=== PATIENT | female | born 1990 | race African-American/Black ===

== ENCOUNTER 2017-02-17 21:11 | Emergency (ER) | payer SELFPAY ==
[~2017-02-17] VITALS: Ht 162.6 cm; Wt 104.7 kg
[~2017-02-17 21:11] MED LIST: IBUP800T23 PO; birth control pills PO
[2017-02-17 21:19] VITALS: BP 175/87; PULSE 89; RESP 20; TEMP 98.4; O2SAT 100
[2017-02-17 21:32] VITALS: BP 149/99
--- NOTE | 2017-02-17 21:35 | PD ---
HPI Chief Complaint: Medication Refill Request Time Seen by Provider: 21:30 Travel History International Travel<30 days: No Contact w/Intl Traveler<30days: No Traveled to known affect area: No History of Present Illness HPI 26-year-old female presents to the emergency room requesting refill of acyclovir. Patient has had diagnosis of genital herpes for the past 4 years. She was having her prescriptions filled at [facility] in [place] but has no ability to get there this time. States she had multiple refills on file at the pharmacy but her prescription just . States this outbreak started yesterday and is a typical presentation. She denies any associated fever, chills, nausea, vomiting, or other symptoms. PFSH Past Medical History Reproductive: Yes (GENITAL HERPES) ?: Not LMP: 02/02/17 : 0 Social History Alcohol Use: Yes (OCCASIONALLY) Tobacco Use: No Substance Use: No Allergies-Medications (Allergen,Severity, Reaction): Coded Allergies: Benadryl (Verified Allergy, Severe, Swelling, 02/17/17) Reported Meds & Prescriptions Reported Meds & Active Scripts Active Reported [ control pills] PO DAILY Review of Systems Except as stated in HPI: all other systems reviewed are Neg Physical Exam Narrative GENERAL: Well-nourished, well-developed female in no acute distress. Afebrile. Ambulatory. SKIN: Focused skin assessment warm/dry. HEAD: Normocephalic. EYES: No scleral icterus. No injection or drainage. NECK: Supple, trachea midline. No JVD or lymphadenopathy. CARDIOVASCULAR: Regular rate and rhythm without murmurs, gallops, or rubs. RESPIRATORY: Breath sounds equal bilaterally. No accessory muscle use. PSYCHIATRIC: No delusional thought processes. No hallucinations. Data Data Last Documented VS Vital Signs Date Time Temp Pulse Resp B/P Pulse Ox O2 Delivery O2 Flow Rate FiO2 02/17/17 21:19 98.4 89 20 175/87 100 MDM Medical Decision Making Medical Screen Exam Complete: Yes Emergency Medical Condition: Yes Medical Record Reviewed: Yes Differential Diagnosis Medication refill, genital herpes, STD Narrative Course 26-year-old female presents to the emergency room requesting medication refill of acyclovir for chronic genital herpes. States she is having a typical outbreak that started yesterday. No associated symptoms. Patient was informed that she will need to follow up with an outpatient physician for continued refills. She was given resources such as [facility]. She'll be discharged with prescription for acyclovir and told to return for worsening symptoms. She understands and agrees to plan. Diagnosis Primary Impression: Recurrent genital herpes Referrals: [facility] call for appointment Additional Instructions: Rest and drink plenty of fluids. Acyclovir as directed, until gone. Follow-up with a primary care physician. Return to the emergency room for worsening symptoms. Med/Other Pt SpecificInfo: Prescription(s) given Disposition: DISCHARGE HOME Condition: Stable Hailee Melo Feb 17, 2017 21:35
[2017-02-17] MEDS ORDERED: ACYC200C66 PO (21:36)
== END 2017-02-17 21:43 | disposition home or self-care (01) ==
LOC: PHED 21:11 → PHEFT 21:43
DX: A60.00 Herpesviral infection of urogenital system, unspecified (principal)
CPT/HCPCS: 99281

== ENCOUNTER 2018-06-23 19:16 | Inpatient (IN) ==
[2018-06-23 20:56] LABS: Baso % (Auto) 0.1 % (0.0-2.0); Eos # (Auto) 0.1 th/mm3 (0.0-0.4); Eos % (Auto) 0.8 % (0.0-4.0); Hematocrit 37.7 % (35.0-46.0); Hemoglobin 12.9 gm/dL (11.6-15.3); Lymph # (Auto) 1.9 th/mm3 (1.0-4.8); Lymph % (Auto) 18.2 % (9.0-44.0); Mean Corpuscular HGB Conc 34.4 % (32.0-36.0); Mean Corpuscular Volume 81.3 fL (80.0-100.0); Mean Platelet Volume 10.4 fL (7.0-11.0); Mono # (Auto) 1.2 th/mm3 (0.0-0.9); Mono % (Auto) 10.9 % (0.0-8.0); Neut # (Auto) 7.4 th/mm3 (1.8-7.7); Platelet Count 151 th/mm3 (150-450); Red Blood Count 4.63 mil/mm3 (4.00-5.30); Red Cell Distribution Width 15.6 % (11.6-17.2); White Blood Count 10.6 th/mm3 (4.0-11.0)
[2018-06-23 21:00] LABS: Bacteria,Urine Rare /hpf; Bilirubin,Urine Negative (Negative); Clarity,Urine Clear (Clear); Color,Urine Straw (Yellw/Straw); Glucose,Urine (UA) Negative (Negative); Leukocyte Esterase,Urine Negative (Negative); Mucus,Urine Few /lpf (Occasional); Nitrite,Urine Negative (Negative); Specific Gravity,Urine 1.003 (1.002-1.035); Squamous Epithelial Cell,Urine <1 /hpf (0-5)
[2018-06-23] MEDS ORDERED: Zolpidem Tartrate 5 MG Tablet PO PRN (21:09)
[2018-06-23 21:10] LABS: Albumin 2.9 g/dL (3.4-5.0); Anion Gap 9 meq/L (5-15); Aspartate Aminotransferase 23 U/L (15-37); Blood Urea Nitrogen 6 mg/dL (7-18); Calcium 8.9 mg/dL (8.5-10.1); Carbon Dioxide 20.6 meq/L (21.0-32.0); Chloride 108 meq/L (98-107); Glomerular Filtration Rate Greater Than 89 mL/min (>89); Glucose,Random 90 mg/dL (74-106); Potassium 3.6 meq/L (3.5-5.1); Sodium 138 meq/L (136-145)
[2018-06-23 21:11] LABS: Alanine Aminotransferase 21 U/L (10-53)
[2018-06-23 21:13] LABS: Alkaline Phosphatase 128 U/L (45-117); Total Protein 6.6 g/dL (6.4-8.2)
[2018-06-23] MEDS ORDERED: Sod Chloride 0.9% Inj 1,000 ML IRRIGATION SCH (21:15)
[2018-06-24] MEDS ORDERED: Oxytocin 30 Units/500ml Premix 30 UNITS/500 ML BAG IV.SIG PRN (07:07)
[2018-06-24] MEDS ORDERED: Sodium Chlor 0.9% Inj 500 ML IV.SIG PRN (07:10)
[2018-06-24] MEDS ORDERED: Sod Chloride 0.9% Inj 1,000 ML IV.CONT PRN (07:10)
[2018-06-24] MEDS ORDERED: Oxytocin 30 Units/500ml Premix 30 UNITS/500 ML BAG IV.SIG ONE (07:10)
[2018-06-24] MEDS ORDERED: Naloxone Inj 0.4 MG/ML Vial IV.PUSH PRN (07:10)
[2018-06-24] MEDS ORDERED: fentaNYL Citrate Inj 100 MCG/2 ML Ampul IV.PUSH PRN (07:10)
[2018-06-24] MEDS ORDERED: Citric Acid/Sodium Citrate Liq 30 ML UDC PO SCH (07:15)
--- NOTE | 2018-06-24 08:21 | P.HPOB ---
History of Present Illness Primary Care Physician: NOT REQUIRED Chief Complaint: Coming in for induction of labor History of Present Illness: Patient is a 27-year-old female para 0000 at 40-1/2 weeks by early ultrasound. She was seen in the center had a borderline blood pressure and had a couple variable decelerations with a good biophysical profile because she is overdue and had some abnormalities on the strip were going ahead and induce her at this time - Inpatient Certification I certify that the inpatient services were ordered in accordance with Medicare regulations governing the order. This includes certification that hospital inpatient services are reasonable and necessary and in the case of services not specified as inpatient-only under 42 CFR 419.22(n), that they are appropriately provided as inpatient services in accordance to with the 2-midnight benchmark under 43 CFR 412.3(e) Estimated Total Length of Stay (Days): 3 Plans for Post Hospital Care: Home Review of Systems No headaches no scotoma no fevers no chills No shortness of breath No chest pain or pressure She reports good movement no rupture of membranes or bleeding or regular uterine contractions Good bowel and bladder function PMFSH - Medical History Medical History: Medical History (Last Reviewed 06/24/18 @ 08:16 by Jerome Sterling MD) Anemia affecting - Surgical History Surgical History: Surgical History (Last Updated 06/24/18 @ 08:16 by Jerome Sterling MD) No history of previous surgery - Family History Family History: Family History (Last Updated 06/24/18 @ 08:17 by Jerome Sterling MD) Other Diabetes mellitus Hypertension Spina bifida - Social History I have reviewed the patient's Social History: Yes - Tobacco History Second Hand Smoke Exposure: No Tobacco Use In Past 30 Days: No Medications and Allergies Active Medications: Active Medications Citric Acid/Sodium Citrate (Sodium Citrate/Citric Acid Liq) 30 ml PO MANAGER PLAN KAVYA Stop: 06/28/18 07:14 Fentanyl Citrate (Fentanyl Inj) 50 mcg IV.PUSH Q1H PRN PRN Reason: Pain Scale 3 - 5 Fentanyl Citrate (Fentanyl Inj) 100 mcg IV.PUSH Q1H PRN PRN Reason: PAIN SCALE 6 TO 10 Sodium Chloride (Ns Inj) 1,000 mls @ 0 mls/hr IRRIGATION .Q0M KAVYA Stop: 06/24/18 21:14 Oxytocin (Pitocin 30 Units/Ns 500 Ml Premix) 30 units in 500 mls @ 2 mls/hr IV.SIG TITRATE PRN; Protocol PRN Reason: For induction of labor Lactated Ringer's (Lr 1000 Ml Inj) 1,000 mls @ 125 mls/hr IV.CONT .Q8H KAVYA Lactated Ringer's (Lr 1000 Ml Inj) 1,000 mls @ 3,000 mls/hr IV.SIG UNSCH PRN PRN Reason: compromise or epidural Sodium Chloride (Ns Inj) 500 mls @ 1,000 mls/hr IV.SIG UNSCH PRN PRN Reason: SEE LABEL COMMENTS Sodium Chloride (Ns Inj) 1,000 mls @ 100 mls/hr IV.CONT .Q10H PRN PRN Reason: SEE LABEL COMMENTS Lidocaine HCl (Xylocaine 1% Inj) 0.1 ml I-DERMAL PRN PRN PRN Reason: For IV start Stop: 06/27/18 07:09 Lidocaine HCl (Xylocaine 1% Inj) 10 ml INFILTRATN PRN PRN PRN Reason: For episiotomy repair Stop: 06/26/18 07:09 Mineral Oil (Muri-Lube Oil) 10 ml TOPICAL PRN PRN PRN Reason: PRN perineal massage Naloxone HCl (Narcan Inj) 0.1 mg IV.PUSH Q2M PRN PRN Reason: for opiate reversal Ondansetron HCl (Zofran Inj) 4 mg IV.PUSH Q6H PRN PRN Reason: NAUSEA OR VOMITING Sodium Chloride (Ns Flush) 2 ml IV.FLUSH BID [facility] Last Admin: 06/24/18 08:11 Dose: 2 ml Sodium Chloride (Ns Flush) 2 ml IV.FLUSH PRN PRN PRN Reason: FLUSH AFTER USING IV ACCESS Zolpidem Tartrate (Ambien) 5 mg PO HS PRN PRN Reason: INSOMNIA Allergies Allergy/AdvReac Type Severity Reaction Status Date / Time diphenhydramine Allergy Severe Swelling Verified 06/24/18 02:03 Home Medications Medication Instructions Recorded Confirmed Type PNV cmb#[id number] fumarate-FA 1 tab PO DAILY 06/24/18 06/24/18 History [ Multivitamins] Exam Vital signs: Vital Signs 06/23/18 20:05 06/23/18 20:14 06/23/18 22:00 Temperature 98.7 F Pulse Rate 96 H Respiratory Rate 18 18 Blood Pressure 151/78 H 06/23/18 23:00 06/23/18 23:30 06/24/18 00:30 Temperature 98.4 F 98.7 F Pulse Rate 96 H Respiratory Rate 18 18 16 Blood Pressure 147/77 H 06/24/18 02:30 06/24/18 04:00 Temperature Pulse Rate 95 H Respiratory Rate 18 18 Blood Pressure 131/69 Intake & Output 06/23/18 06/24/18 06/24/18 18:59 06:59 18:59 Weight 117.934 kg Narrative: GENERAL: Well-nourished, well-developed patient. SKIN: Warm and dry. HEAD: Normocephalic and atraumatic. EYES: No scleral icterus. No injection or drainage. ENT: No nasal drainage noted. Mucous membranes pink. Airway patent. NECK: Supple, trachea midline. No JVD. CARDIOVASCULAR: Regular rate and rhythm without murmurs, gallops, or rubs. RESPIRATORY: Breath sounds equal bilaterally. No accessory muscle use. BREASTS: Bilateral exam showed no masses , no retractions, no nipple discharge. ABDOMEN/GI: Abdomen soft, non-tender, bowel sounds present, no rebound, no guarding Gravid to 40 weeks size Fundal Height: 40 GENITOURINARY: External Genitalia: intact and normal in appearance BUS glands: Normal Cervix: Dilatation: 2 cm Effacement: 80% Station: -2 Presentation: Vertex Membranes: AROM performed with clear fluid Uterine Contractions: Every 5 minutes FHT's: Category: 1 Baseline: 140 Reactive: Yes Variability: Good Decels: None EXTREMITIES: No cyanosis or edema. BACK: Nontender without obvious deformity. No CVA tenderness. NEUROLOGICAL: Awake and alert. Motor and sensory grossly within normal limits. Five out of 5 muscle strength in all muscle groups. Normal speech. - Constitutional no acute distress Results - Labs CBC & Chem 7: 06/23/18 20:10 06/23/18 20:10 Labs: Laboratory Results - last 24 hr 06/23/18 06/23/18 06/23/18 19:30 19:30 20:10 WBC 10.6 RBC 4.63 Hgb 12.9 Hct 37.7 MCV 81.3 MCH 28.0 MCHC 34.4 RDW 15.6 Plt Count 151 MPV 10.4 Neut % (Auto) 70.0 Lymph % (Auto) 18.2 Eaton % (Auto) 10.9 H Eos % (Auto) 0.8 Baso % (Auto) 0.1 Neut # (Auto) 7.4 Lymph # (Auto) 1.9 Eaton # (Auto) 1.2 H Eos # (Auto) 0.1 Baso # (Auto) 0.0 WBC Differential . Differential Comment Auto diff final Sodium Potassium Chloride Carbon Dioxide Anion Gap BUN Creatinine Estimated GFR Random Glucose Calcium Total Bilirubin AST ALT Alkaline Phosphatase Total Protein Albumin Urine Color Straw Urine Clarity Clear Urine pH 7.0 Ur Specific [place] 1.003 Urine Protein Negative Urine Glucose (UA) Negative Urine Ketones Negative Urine Occult Blood Negative Urine Nitrate Negative Urine Bilirubin Negative Urine Urobilinogen Less than 2 Ur Leukocyte Esterase Negative Urine WBC 2 Ur Squamous Epith Cells <1 Urine Bacteria Rare H Urine Mucus Few H Micro UA Comment Culture not ind Ur Microscopic Review Not Reportable Urine Culture Comments Culture not ind POC Urine Opiates Negative POC Urine Buprenorphine Negative POC Urine Oxycodone Negative POC Urine Methadone Negative POC Urine Barbiturates Negative POC Urine PCP Negative POC Ur Amphetamines Negative POC Ur Methamphetamine Negative POC Urine MDMA Negative POC Ur Benzodiazepine Negative POC Urine Cocaine Negative POC Ur Marijuana (THC) Negative Blood Type Blood Type Recheck 06/23/18 06/23/18 20:10 20:10 WBC RBC Hgb Hct MCV MCH MCHC RDW Plt Count MPV Neut % (Auto) Lymph % (Auto) [place] % (Auto) Eos % (Auto) Baso % (Auto) Neut # (Auto) Lymph # (Auto) [place] # (Auto) Eos # (Auto) Baso # (Auto) WBC Differential Differential Comment Sodium 138 Potassium 3.6 Chloride 108 H Carbon Dioxide 20.6 L Anion Gap 9 BUN 6 L Creatinine 0.63 Estimated GFR Greater than 89 Random Glucose 90 Calcium 8.9 Total Bilirubin 0.3 AST 23 ALT 21 Alkaline Phosphatase 128 H Total Protein 6.6 Albumin 2.9 L Urine Color Urine Clarity Urine pH Ur Specific [place] Urine Protein Urine Glucose (UA) Urine Ketones Urine Occult Blood Urine Nitrate Urine Bilirubin Urine Urobilinogen Ur Leukocyte Esterase Urine WBC Ur Squamous Epith Cells Urine Bacteria Urine Mucus Micro UA Comment Ur Microscopic Review Urine Culture Comments POC Urine Opiates POC Urine Buprenorphine POC Urine Oxycodone POC Urine Methadone POC Urine Barbiturates POC Urine PCP POC Ur Amphetamines POC Ur Methamphetamine POC Urine MDMA POC Ur Benzodiazepine POC Urine Cocaine POC Ur Marijuana (THC) Blood Type A Positive Blood Type Recheck Required Group B Strep: Negative Caprini VTE Risk Assessment Caprini VTE Risk Assessment: No/Low Risk (score <= 1) Caprini Risk Assessment Model: Point Value = 1 Point Value = 2 Point Value = 3 Point Value = 5 Age 41-60 Minor surgery BMI > 25 kg/m2 Swollen legs Varicose veins or History of unexplained or recurrent spontaneous Oral contraceptives or hormone replacement Sepsis (< 1 month) Serious lung disease, including pneumonia (< 1 month) Abnormal pulmonary function Acute myocardial infarction Congestive heart failure (< 1 month) History of inflammatory bowel disease Medical patient at bed rest Age 61-74 Arthroscopic surgery Major open surgery (> 45 min) Laparoscopic surgery (> 45 min) Malignancy Confined to bed (> 72 hours) Immobilizing plaster cast Central venous access Age >= 75 History of VTE Family history of VTE Factor V Leiden Prothrombin [id number] Lupus anticoagulant Anticardiolipin antibodies Elevated serum homocysteine Heparin-induced thrombocytopenia Other congenital or acquired thrombophilia Stroke (< 1 month) Elective arthroplasty Hip, pelvis, or leg fracture Acute spinal cord injury (< 1 month) Prophylaxis Regimen: Total Risk Factor Score Risk Level Prophylaxis Regimen 0-1 Low Early ambulation 2 Moderate Order ONE of the following: *Sequential Compression Device (SCD) *Heparin 5000 units SQ BID 3-4 Higher Order ONE of the following medications: *Heparin 5000 units SQ TID *Enoxaparin/Lovenox 40 mg SQ daily (WT < 150 kg, CrCl > 30 mL/min) *Enoxaparin/Lovenox 30 mg SQ daily (WT < 150 kg, CrCl > 10-29 mL/min) *Enoxaparin/Lovenox 30 mg SQ BID (WT < 150 kg, CrCl > 30 mL/min) AND/OR *Sequential Compression Device (SCD) 5 or more Highest Order ONE of the following medications: *Heparin 5000 units SQ TID (Preferred with Epidurals) *Enoxaparin/Lovenox 40 mg SQ daily (WT < 150 kg, CrCl > 30 mL/min) *Enoxaparin/Lovenox 30 mg SQ daily (WT < 150 kg, CrCl > 10-29 mL/min) *Enoxaparin/Lovenox 30 mg SQ BID (WT < 150 kg, CrCl > 30 mL/min) AND *Sequential Compression Device (SCD) Assessment and Plan - Plan 1. Intrauterine at 40-1/2 weeks 2. Very be full decelerations in the diagnostic lab for induction the strip looks excellent now with good accelerations and it is category 1 3. Allergic to Benadryl we will avoid that medication
[2018-06-24] MEDS: fentaNYL Citrate Inj 100 MCG/2 ML Ampul IV.PUSH PRN ×2 (13:32→19:51)
[2018-06-24] MEDS ORDERED: fentaNYL 2MCG-Bupiv 0.125% Epi 150 ML EPIDURAL ONE (22:46)
[2018-06-24] MEDS ORDERED: fentaNYL Citrate Inj 100 MCG/2 ML Ampul EPIDURAL ONE (23:33)
[2018-06-24] MEDS ORDERED: fentaNYL 2MCG-Bupiv 0.125% Epi 150 ML EPIDURAL PRN (23:33)
[2018-06-25] MEDS ORDERED: Morphine Sulfate PF Inj 5 MG/10 ML Ampul ONE (02:33)
[2018-06-25] MEDS ORDERED: ceFAZolin Inj 500 MG Vial IV.PUSH ONE (02:44)
[2018-06-25] MEDS ORDERED: Esmolol Bolus Inj 100 MG/10 ML Vial IV.PUSH ONE (02:44)
[2018-06-25] MEDS ORDERED: Lidocaine 2%/Epinephrine 1:200,000 PF Inj 20 ML Vial NERV BLOCK ONE (02:44)
[2018-06-25] MEDS ORDERED: Phenylephrine/NS 1000 MCG/10ML Syringe IV.PUSH ONE (02:44)
[2018-06-25] MEDS ORDERED: CEFAZOLIN ONE (03:05)
[2018-06-25] MEDS ORDERED: Senna/Docusate Sodium 8.6/50 MG Tablet PO PRN (04:16)
[2018-06-25] MEDS ORDERED: Oxytocin 30 Units/500ml Premix 30 UNITS/500 ML BAG IV.SIG ONE (04:16)
[2018-06-25] MEDS ORDERED: Zolpidem Tartrate 5 MG Tablet PO PRN (04:16)
--- NOTE | 2018-06-25 04:21 | P.OP ---
- Preoperative Diagnosis (1) Failure to progress in labor (2) macrosomia - Postoperative Diagnosis (1) Failure to progress in labor (2) macrosomia Date of procedure: 06/25/18 Procedure: Primary low transverse section Anesthesia: epidural Surgeon: Jerome Sterling MD Estimated blood loss (mL): 600 Operation and Findings: Counts were correct Findings normal viable female with Apgars of 8 and 9 weight was 9 pounds 14 ounces Normal uterus normal tubes normal ovaries normal cul-de-sacs Indication for procedure patient was seen in the diagnostic lab for post dates and was having some variable decelerations and we decided to induced for postdates. After breaking her water we gave her approximately 18 hours she was still not progressing IUPC was placed and there were adequate contractions despite this there was no cervical change. The patient was starting to get warm although she did not have a fever and there was a slight tachycardia for some time decision was made for primary section. Taken to the operating room identified by name band and verbally and given a regional anesthetic. She was prepped and draped in the usual sterile manner for a section. A time out was taken. A Pfannenstiel incision was made and carried down to the fascia the fascia was nicked bilaterally and the fascia was taken off the rectus muscle by blunt and sharp dissection. The rectus muscles were spread bluntly and the peritoneum was entered under direct vision. The incision was extended with care to avoid the urinary bladder. A bladder blade was placed and a bladder flap was created in the usual fashion. The lower uterine segment was then incised sharply in a transverse manner and taken down in the midline until the uterine cavity was entered. The incision was extended with the surgeon's fingers. The vertex was grasped and with fundal pressure the vertex was delivered without difficulty hypopharynx and nasopharynx were suctioned and the remainder of the delivered without difficulty. The cord clamping was delayed 45 seconds and then the cord was clamped cut and the was handed over to the resuscitation team cord blood was obtained the placenta was removed manually and the uterus was curettaged twice with a wet lap. The uterus was delivered from the abdomen. The uterine incision was repaired with 0 Vicryl in a running fashion in 2 layers the second layer imbricating the first. The cul-de-sac and gutters were cleaned of blood and debris the uterus was delivered back into the abdomen. The rectus muscles were reapproximated with 0 Vicryl in a running the fascia was repaired with 0 Vicryl from lateral to midline bilaterally. The subcutaneous layer was repaired with a 3-0 Vicryl. The skin was repaired with a 4-0 Monocryl in a subcuticular manner. Patient tolerated the procedure well and went to recovery room in good condition.
[2018-06-25] MEDS ORDERED: ceFAZolin Inj 2,000 MG in Sodium Chlor 0.9% Inj 80 ML IV.SIG SCH (05:00)
[2018-06-25] MEDS ORDERED: Oxytocin 30 Units/500ml Premix 30 UNITS/500 ML BAG ONE (05:36)
[2018-06-25] MEDS ORDERED: ceFAZolin 2 GM Premix Inj 2 GM/50 ML PIGGYBACK IV.SIG SCH (06:00)
[2018-06-25] MEDS ORDERED: Naloxone Inj 0.4 MG/ML Vial IV.PUSH PRN (07:29)
[2018-06-25] MEDS ORDERED: Oxytocin 30 Units/500ml Premix 30 UNITS/500 ML BAG IV.SIG PRN (09:16)
[2018-06-25] MEDS: Prenatal Vit/Ca/Iron/Folic Acid Tablet PO SCH (10:00)
[2018-06-25] MEDS ORDERED: ceFAZolin 2 GM Premix Inj 2 GM/50 ML PIGGYBACK IV.SIG ONE (11:00)
[2018-06-26 05:49] LABS: Baso % (Auto) 0.2 % (0.0-2.0); Eos # (Auto) 0.1 th/mm3 (0.0-0.4); Eos % (Auto) 0.5 % (0.0-4.0); Hemoglobin 11.4 gm/dL (11.6-15.3); Lymph % (Auto) 11.4 % (9.0-44.0); Mean Corpuscular HGB Conc 33.6 % (32.0-36.0); Mean Corpuscular Volume 83.3 fL (80.0-100.0); Mean Platelet Volume 9.9 fL (7.0-11.0); Mono % (Auto) 11.6 % (0.0-8.0); Neut # (Auto) 13.5 th/mm3 (1.8-7.7); Neut % (Auto) 76.3 % (16.0-70.0); Platelet Count 138 th/mm3 (150-450); Red Blood Count 4.08 mil/mm3 (4.00-5.30); Red Cell Distribution Width 16.1 % (11.6-17.2); White Blood Count 17.7 th/mm3 (4.0-11.0)
[2018-06-26 08:16] VITALS: RESP 20
[2018-06-26] MEDS: Prenatal Vit/Ca/Iron/Folic Acid Tablet PO SCH (09:18)
--- NOTE | 2018-06-26 09:55 | P.PNOB ---
Subjective Post op day: 1 Objective Vital Signs/I&O: Vital Signs 06/25/18 12:00 06/25/18 20:00 06/25/18 23:45 Temperature 98.4 F 98.1 F 98.3 F Pulse Rate 88 69 119 H Respiratory Rate 18 Blood Pressure 143/69 H 129/60 125/71 06/26/18 08:00 Temperature 98.2 F Pulse Rate 101 H Respiratory Rate 20 Blood Pressure 145/80 H Result Diagrams: 06/26/18 04:20 06/23/18 20:10 Objective Remarks: GENERAL: Well-nourished, well-developed patient. CARDIOVASCULAR: Regular rate and rhythm without murmurs, gallops, or rubs. RESPIRATORY: Breath sounds equal bilaterally. No accessory muscle use. ABDOMEN/GI: Abdomen soft, non-tender, bowel sounds present/hypoactive. Incision: Clean, dry and intact. Fundus: Firm, non-tender at umbilicus. GENITOURINARY: Light to moderate bleeding. EXTREMITIES: No cyanosis or edema, non-tender, without signs of DVT. Medications and IVs: Active Medications Diphtheria/Pertussis/Tetanus Vacc (Boostrix Vaccine Inj) 0.5 ml IM .ONCE ONE Stop: 06/26/18 16:01 Oxytocin (Pitocin 30 Units/Ns 500 Ml Premix) 30 units in 500 mls @ 2 mls/hr IV.SIG TITRATE PRN; Protocol PRN Reason: For induction of labor Last Admin: 06/24/18 08:12 Dose: 2 milliunit/min, 2 mls/hr Oxytocin (Pitocin 30 Units/Ns 500 Ml Premix) 30 units in 500 mls @ 100 mls/hr IV.SIG UNSCH PRN PRN Reason: Heavy bleeding Ibuprofen (Motrin) 800 mg PO Q8H PRN PRN Reason: cramping Last Admin: 06/26/18 09:26 Dose: 800 mg Measles/Mumps/Rubella Vaccine Live (M-M-R Ii Vaccine Inj) 0.5 ml SQ .ONCE ONE Stop: 06/26/18 16:01 Oxycodone/Acetaminophen (Percocet 5/325 Mg) 1 tab PO Q4H PRN PRN Reason: PAIN SCALE 3 TO 5 Oxycodone/Acetaminophen (Percocet 5/325 Mg) 2 tab PO Q4H PRN PRN Reason: PAIN SCALE 6 TO 10 Vit/Calcium/Iron/Folic Ac (Stuartnatal Plus 3) 1 tab PO DAILY [facility] Last Admin: 06/26/18 09:18 Dose: 1 tab Senna/Docusate Sodium (Huyen-Colace) 2 tab PO Q12H PRN PRN Reason: CONSTIPATION Simethicone (Mylicon Chew) 80 mg PO QID PRN PRN Reason: FLATULENCE Sodium Chloride (Ns Flush) 2 ml IV.FLUSH BID [facility] Last Admin: 06/26/18 09:18 Dose: Not Given Sodium Chloride (Ns Flush) 2 ml IV.FLUSH PRN PRN PRN Reason: FLUSH AFTER USING IV ACCESS Zolpidem Tartrate (Ambien) 5 mg PO HS PRN PRN Reason: INSOMNIA Assessment and Plan - Diagnosis (1) Status post Code(s): Z98.891 - History of uterine scar from previous surgery Status: Acute Plan: routine post op care - Plan POD #1 primary c section pt doing well pain well managed with oral pain medication, pt only taking Motrin she is encouraged to take Percocet if needed as activity increases pulse 101-110, BP slightly elevated 120-140's/70-80 will continue to monitor WBC slightly elevated but afebrile. platelets 138,000, repeat cbc in am no flatus and bonding with infant routine post op care Discharge Planning: consider dc in 1-2 days
--- NOTE | 2018-06-26 10:03 | P.DS ---
Date of admission: 06/23/18 19:16 Primary care physician: NOT REQUIRED Attending physician on discharge: Jerome Sterling Anticipated date of discharge: 06/28/18 Brief History from admission: Patient is a 27-year-old female para 0000 at 40-1/2 weeks by early ultrasound. She was seen in the center had a borderline blood pressure and had a couple variable decelerations with a good biophysical profile because she is overdue and had some abnormalities on the strip were going ahead and induce her at this time DS: Diagnosis - Discharge Diagnosis (1) Status post Status: Acute DS: Medications - Discharge Medications Prescriptions: oxycodone-acetaminophen 1 - 2 tab PO Q4H PRN #28 tab PRN Reason: moderate pain DS: Summary Hospital Course: pt 40+ weeks, hx of polyhydramnios, admitted for induction due to decels noted on NST failure to progress, primary c section, routine post of care - Time Spent with Patient Total time spent providing and/or coordinating discharge services: Less than 30 minutes Exam Vital signs: Vital Signs 06/25/18 12:00 06/25/18 20:00 06/25/18 23:45 Temperature 98.4 F 98.1 F 98.3 F Pulse Rate 88 69 119 H Respiratory Rate 18 18 18 Blood Pressure 143/69 H 129/60 125/71 06/26/18 08:00 Temperature 98.2 F Pulse Rate 101 H Respiratory Rate 20 Blood Pressure 145/80 H Results Procedures completed during hospitalization: primary c section Labs on day of discharge: Labs from last 24 hours 06/26/18 04:20 WBC 17.7 H RBC 4.08 Hgb 11.4 L Hct 34.0 L MCV 83.3 MCH 28.0 MCHC 33.6 RDW 16.1 Plt Count 138 L MPV 9.9 Neut % (Auto) 76.3 H Lymph % (Auto) 11.4 [place] % (Auto) 11.6 H Eos % (Auto) 0.5 Baso % (Auto) 0.2 Neut # (Auto) 13.5 H Lymph # (Auto) 2.0 [place] # (Auto) 2.0 H Eos # (Auto) 0.1 Baso # (Auto) 0.0 WBC Differential . Differential Comment Auto diff final Discharge Plan - Discharge Disposition Patient Disposition: 01 Discharge Home - Discharge Condition Condition: Good - Discharge Order Discharge Orders: Discharge Order (Routine); Ordered 06/27/18 Ordered By: Shannan Hall - Discharge Details Anticipated Discharge Date: 06/28/18 - Physicians Team Primary Care Provider: NOT REQUIRED, Attending Provider: Jerome Sterling - Rxs /Orders / Referrals /Forms Prescriptions: New oxycodone-acetaminophen 5-325 mg Tablet 1 - 2 tab PO Q4H PRN (Reason: moderate pain) Qty: 28 RF: 0 Continue PNV cmb#95-ferrous fumarate-FA [ Multivitamins] 28 mg iron- 800 mcg Tablet 1 tab PO DAILY Referrals: Jerome Sterling MD [Physician] - See Instructions (call to be seen in 1 week) NOT REQUIRED, [Primary Care Provider] - See Instructions - Discharge Instructions Patient Printed Instructions: Preeclampsia and Eclampsia After Delivery (GEN) Additional Instructions: mother baby packet given. - Post Discharge Care Plan Care Plan Goals: Discharge Care Plan Goals After Section Congratulations on your new baby! We want your recovery to be grissom and trouble free. You had a section, or . During the , your baby was delivered through an incision in your abdomen and uterus. Full recovery after a can take time. Its important to take care of yourself for your own sake and because your new baby needs you. Here are some guidelines to follow at home. Incision care: Here's how to take care of your incision: * Shower as needed. Pat your incision dry. * Watch your incision for signs of infection, like more redness or drainage. * Hold a pillow against the incision when you laugh or cough and when you get up from a lying or sitting position. * Remember, it can take as long as 6 weeks for your incision to heal. Diet and Activity: Here are some suggestions: * Dont try to take care of anyone other than your baby and yourself. * Remember, the more active you are, the more likely you are to have an increase in your bleeding. * Get lots of rest. Take naps when the is napping. * Increase your activities bit by bit. * Plan your activities so that you dont have to go up or down stairs more than needed. * Do postsurgical deep breathing and coughing exercises. Follow your physician' s instructions. * Dont lift anything heavier than your baby until your physician tells you it s OK. * Dont drive when you are on pain medications. * Dont have sexual intercourse until after youve had a checkup with your physician and you have decided on a control method. * Allow others to do things for you. Don't hesitate to ask for help. If you are : * Ask before you take any medicine. * If you leak milk, it will help to nurse right before the activity. * Talk to your healthcare provider about alcohol, if you choose to drink. * When youre sick, check with your physician if the medications would impact the breast feeding * Ask your physician before taking any prescription or over-the- counter medicines, herbs, or supplements. * Ask your physician what to use for prevention while you are nursing. Balancing the Blues: Recognize your need to talk, to feel protected, to have private time. Allow yourself to cry, to sit, to think. Ask for help when you need it, and accept help when its offered. Knowing your needs is not a weakness. Share your thoughts with your partner. Or bean picker the phone and call a friend, your mother , a sister, or an aunt. Rest, eat right, and get some light exercise. The mind feels best when the body feels good. When to Call your Physician: * Fever of 100.5F or higher. * Redness, pain, or drainage at your incision site * Bleeding that requires a new sanitary pad every hour * Severe pain in the abdomen * Pain or urgency with urination * Foul odor from vaginal discharge * Trouble urinating or emptying your bladder * No bowel movement within 1 week after the of your baby * Swollen, red, painful area in the calf/leg * Appearance of rash or hives * Sore, red, painful area on the breasts that may come with flu-like symptoms * Feelings of anxiety, panic, and/or depression Signs of Depression include: You dont want to be with the baby. Your symptoms are not getting better, and youre getting more upset. You have no interest in eating or are not able to sleep. You think you may harm yourself or the baby. The Depression After Delivery hotline (448-919-7640) may also be helpful. Follow-Up: * Keep your appointments as scheduled. * If your symptoms worsen call your OB Physician, or go to an Urgent Care Center or Emergency Room. * Smoking is Dangerous to your health. Avoid second hand smoke. * Call the 24-hour crisis hotline for domestic abuse at Call 911: Call 911 right away if you have: * Sudden onset of chest pain that is not relieved by medications. * Shortness of breath * Severe Depression /Thoughts of harm to self and others
[2018-06-26] MEDS ORDERED: Diphtheria/Tetanus/Pertussis Vaccine Inj 0.5 ML Syringe IM ONE (16:00)
[2018-06-26] MEDS ORDERED: Measles/Mumps/Rubella Vaccine Inj 0.5 ML Vial SQ ONE (16:00)
[2018-06-26 20:48] VITALS: TEMP 98.4
[2018-06-26] MEDS: Simethicone 80 MG Chew Tablet PO PRN (22:14)
[2018-06-27] MEDS: Simethicone 80 MG Chew Tablet PO PRN ×2 (06:56→12:37)
[2018-06-27 07:04] LABS: Baso % (Auto) 0.3 % (0.0-2.0); Eos # (Auto) 0.3 th/mm3 (0.0-0.4); Eos % (Auto) 2.1 % (0.0-4.0); Hematocrit 33.5 % (35.0-46.0); Hemoglobin 11.3 gm/dL (11.6-15.3); Lymph % (Auto) 14.3 % (9.0-44.0); Mean Corpuscular HGB Conc 33.6 % (32.0-36.0); Mean Corpuscular Volume 83.5 fL (80.0-100.0); Mean Platelet Volume 9.7 fL (7.0-11.0); Mono # (Auto) 1.5 th/mm3 (0.0-0.9); Mono % (Auto) 10.8 % (0.0-8.0); Neut # (Auto) 10.1 th/mm3 (1.8-7.7); Neut % (Auto) 72.5 % (16.0-70.0); Platelet Count 160 th/mm3 (150-450); Red Blood Count 4.02 mil/mm3 (4.00-5.30); Red Cell Distribution Width 16.1 % (11.6-17.2)
[2018-06-27] MEDS: Prenatal Vit/Ca/Iron/Folic Acid Tablet PO SCH (08:33)
[2018-06-27 10:05] VITALS: BP 130/63; PULSE 93
--- NOTE | 2018-06-27 19:41 | P.PNOB ---
Subjective Post op day: 2 Interval history: Doing well the pain is well controlled Baby is doing well She is ready to go home There is plenty of help at home Bleeding is normal and the incision feels fine Objective Vital Signs/I&O: Vital Signs 06/26/18 20:00 06/27/18 08:00 Temperature 98.4 F 98.4 F Pulse Rate 103 H 93 H Respiratory Rate 20 20 Blood Pressure 158/82 H 130/63 Result Diagrams: 06/27/18 06:53 06/23/18 20:10 Objective Remarks: GENERAL: Well-nourished, well-developed patient. CARDIOVASCULAR: Regular rate and rhythm without murmurs, gallops, or rubs. RESPIRATORY: Breath sounds equal bilaterally. No accessory muscle use. ABDOMEN/GI: Abdomen soft, non-tender, bowel sounds present. Incision: Clean, dry and intact. Fundus: Firm, non-tender at umbilicus. GENITOURINARY: Light to moderate bleeding. EXTREMITIES: No cyanosis or edema, non-tender, without signs of DVT. Medications and IVs: Active Medications Oxytocin (Pitocin 30 Units/Ns 500 Ml Premix) 30 units in 500 mls @ 2 mls/hr IV.SIG TITRATE PRN; Protocol PRN Reason: For induction of labor Last Admin: 06/24/18 08:12 Dose: 2 milliunit/min, 2 mls/hr Oxytocin (Pitocin 30 Units/Ns 500 Ml Premix) 30 units in 500 mls @ 100 mls/hr IV.SIG UNSCH PRN PRN Reason: Heavy bleeding Ibuprofen (Motrin) 800 mg PO Q8H PRN PRN Reason: cramping Last Admin: 06/26/18 22:14 Dose: 800 mg Oxycodone/Acetaminophen (Percocet 5/325 Mg) 1 tab PO Q4H PRN PRN Reason: PAIN SCALE 3 TO 5 Last Admin: 06/27/18 16:54 Dose: 1 tab Oxycodone/Acetaminophen (Percocet 5/325 Mg) 2 tab PO Q4H PRN PRN Reason: PAIN SCALE 6 TO 10 Vit/Calcium/Iron/Folic Ac (Stuartnatal Plus 3) 1 tab PO DAILY KAVYA Last Admin: 06/27/18 08:33 Dose: 1 tab Senna/Docusate Sodium (Huyen-Colace) 2 tab PO Q12H PRN PRN Reason: CONSTIPATION Last Admin: 06/27/18 08:33 Dose: 2 tab Simethicone (Mylicon Chew) 80 mg PO QID PRN PRN Reason: FLATULENCE Last Admin: 06/27/18 12:37 Dose: 80 mg Sodium Chloride (Ns Flush) 2 ml IV.FLUSH BID KAVYA Last Admin: 06/27/18 10:34 Dose: Not Given Sodium Chloride (Ns Flush) 2 ml IV.FLUSH PRN PRN PRN Reason: FLUSH AFTER USING IV ACCESS Zolpidem Tartrate (Ambien) 5 mg PO HS PRN PRN Reason: INSOMNIA Assessment and Plan - Diagnosis (1) Status post Code(s): Z98.891 - History of uterine scar from previous surgery Status: Acute Plan: routine post op care - Plan POD #2 Doing well and ready to go home she has remained afebrile and her exam is normal Will return to the office in 1 week and gave her detailed discharge instructions Discharge Planning: consider dc in 1-2 days
== END 2018-06-27 20:38 | disposition home or self-care (01) | DRG 788 ==
LOC: H2E 19:16 → H1EA 06-25 06:03
PROVIDERS: ADMIT Obstetrics & Gynecology; ATTEND Obstetrics & Gynecology
CPT/HCPCS: 59025; 76816; 76818; 80053; 80307; 81001; 85025; 86900; 86901; 88307; G0481; G0483; J0131; J0690; J1100; J2274; J2370; J2405; J2590; J3010; J7120